=== PATIENT | female | born 1970 | race Hispanic/Latino ===

== ENCOUNTER 2019-01-30 07:40 | Day surgery (SDC) | payer MEDICAID ==
[~2019-01-30 07:40] MED LIST: SODIUM CHLORIDE 0.9% 1000ML 1,000 ML IV ONE
[2019-01-30 08:12] VITALS: BP 116/66
[2019-01-30] MEDS ORDERED: SERT25TA5 PO (08:21)
[2019-01-30] MEDS ORDERED: LEDI1TAB PO (08:21)
[2019-01-30] MEDS ORDERED: ACET-66 PO (08:21)
[2019-01-30] MEDS ORDERED: PROPOFOL 1000 MG/100 ML 100 ML IV ONE (09:01)
[2019-01-30 09:20] VITALS: BP 111/63
[2019-01-30 09:25] VITALS: BP 94/67
[2019-01-30 09:30] VITALS: BP 102/63
[2019-01-30 09:35] VITALS: BP 102/72
[2019-01-30 09:40] VITALS: BP 109/67
== END 2019-01-30 10:00 | disposition home or self-care (01) ==
LOC: DAH 07:40 → ENDO 07:40
PROVIDERS: ATTEND Internal Medicine Gastroenterology
DX: K29.50 Unspecified chronic gastritis without bleeding (principal); K21.9 Gastro-esophageal reflux disease without esophagitis; F32.9 Major depressive disorder, single episode, unspecified; K76.0 Fatty (change of) liver, not elsewhere classified; Z90.710 Acquired absence of both cervix and uterus; Z98.890 Other specified postprocedural states; Z79.899 Other long term (current) drug therapy; Z88.0 Allergy status to penicillin; Z86.010 Personal history of colon polyps
CPT/HCPCS: 43239; 88305; 88342; A4606; J2704; J7030